=== PATIENT | male | born 1995 | race Asian ===

== ENCOUNTER 2020-09-13 13:32 | Outpatient (CLI) | payer BC ==
--- NOTE | 2020-09-13 14:09 | ULT ---
THYROID ULTRASOUND: Date: 09/13/2020 INDICATION: Hypothyroidism. FINDINGS: Both lobes of thyroid are homogeneous and have normal size and appearance. Left lobe measurement: 1.4 x 4.7 x 1.1 cm. Right lobe measurement: 1.6 x 4.7 x 1.4 cm. Isthmus: 0.2 cm. No mass or nodule identified in either lobe. IMPRESSION: Unremarkable thyroid ultrasound. POS: AH
== END 2020-09-13 13:33 | disposition home or self-care (01) ==
LOC: SCSULT 13:32
PROVIDERS: ATTEND Internal Medicine Endocrinology, Diabetes & Metabolism
DX: E04.9 Nontoxic goiter, unspecified (principal)
CPT/HCPCS: 76536